=== PATIENT | female | born 1955 | race African-American/Black ===

== ENCOUNTER 2018-07-25 10:03 | Emergency (ER) | payer BC, OTHER ==
[2018-07-25 10:26] VITALS: BP 146/73
--- NOTE | 2018-07-25 10:39 | ER Document Report ---
ED Medical Screen (RME) - General Chief Complaint: Breathing Difficulty Stated Complaint: DIFFICULTY BREATHING Time Seen by Provider: 07/25/18 10:34 Primary Care Provider: KAYCE DANIEL [Primary Care Provider] - Follow up as needed Notes: Patient is a 63-year-old female presents to the emergency department for generalized respiratory distress. States she has had intermittent shortness of breath which got worse this morning which is why she presents to the emergency room. Patient states on July 11 she had a total knee replacement of the left knee. Patient's denying any complications without surgery. Patient's denying any history of asthma, COPD, congestive heart failure. She is denying any chest pain. States she just feels as though it is hard to catch her breath. Patient's denying any URI symptoms or fever. GENERAL: Alert, interacts well. No acute distress. LUNGS: Clear to auscultation bilaterally, no wheezes, rales, or rhonchi. No respiratory distress. I have greeted and performed a rapid initial assessment of this patient. A comprehensive ED assessment and evaluation of the patient, analysis of test results and completion of the medical decision making process will be conducted by additional ED providers. This medical record was dictated with voice recognizing software. There may be grammatical, syntax errors that are unintended. TRAVEL OUTSIDE OF THE [place] IN LAST 30 DAYS: No - Related Data Allergies/Adverse Reactions: diphenhydramine [From Benadryl] Allergy (Verified 07/25/18 10:04) Physical Exam - Vital signs Vitals: Temp Pulse Resp BP Pulse Ox 98.2 F 85 18 146/73 H 97 07/25/18 10:07/25/18 10:07/25/18 10:07/25/18 10:07/25/18 10:25 Course - Vital Signs Vital signs: Temp Pulse Resp BP Pulse Ox 98.2 F 85 18 146/73 H 97 07/25/18 10:07/25/18 10:07/25/18 10:07/25/18 10:07/25/18 10:25 Doctor's Discharge - Discharge Referrals: KAYCE DANIEL [Primary Care Provider] - Follow up as needed
--- NOTE | 2018-07-25 11:00 | RADIOLOGY REPORT (SQ) ---
EXAM DESCRIPTION: CHEST 2 VIEWS COMPLETED DATE/TIME: 07/25/2018 10:49 am REASON FOR STUDY: SOB COMPARISON: None. EXAM PARAMETERS: NUMBER OF VIEWS: two views TECHNIQUE: Digital Frontal and Lateral radiographic views of the chest acquired. RADIATION DOSE: NA LIMITATIONS: none FINDINGS: LUNGS AND PLEURA: No opacities, masses or pneumothorax. No pleural effusion. MEDIASTINUM AND HILAR STRUCTURES: No masses or contour abnormalities. HEART AND VASCULAR STRUCTURES: Heart normal size. No evidence for failure. BONES: No acute findings. HARDWARE: None in the chest. OTHER: No other significant finding. IMPRESSION: NO ACUTE RADIOGRAPHIC FINDING IN THE CHEST. TECHNICAL DOCUMENTATION: JOB ID: [id number] [employer]- All Rights Reserved Reading location - IP/workstation name: [email or web address]
[2018-07-25 11:17] LABS: ABSOLUTE BASOPHILS # (AUTO) 0.1 10^3/uL (0.0-0.2); ABSOLUTE LYMPHOCYTES (AUTO) 1.2 10^3/uL (0.5-4.7); ABSOLUTE MONOCYTES (AUTO) 0.7 10^3/uL (0.1-1.4); ABSOLUTE NEUT (AUTO) 7.1 10^3/uL (1.7-8.2); BASOPHILS % (AUTO) 0.9 % (0-2); EOSINOPHILS % (AUTO) 0.1 % (0-6); HEMATOCRIT 35.3 % (36.0-47.0); HEMOGLOBIN 11.8 g/dL (12.0-15.5); LYMPHOCYTES % (AUTO) 13.1 % (13-45); MEAN CORPUSCULAR HGB CONC 33.3 g/dL (32.0-36.0); MEAN CORPUSCULAR VOLUME 84 fl (80-97); MONOCYTES % (AUTO) 7.4 % (3-13); PLATELET COUNT 375 10^3/uL (150-450); RED BLOOD COUNT 4.21 10^6/uL (3.72-5.28); RED CELL DISTRIBUTION WIDTH 14.4 % (11.5-14.0); SEGMENTED NEUTROPHILS % (AUTO) 78.5 % (42-78); TOTAL CELLS COUNTED % (AUTO) 100 %; WHITE BLOOD COUNT 9.1 10^3/uL (4.0-10.5)
[2018-07-25 11:36] LABS: ALANINE AMINOTRANSFERASE 44 U/L (9-52); ALBUMIN 4.4 g/dL (3.5-5.0); ALKALINE PHOSPHATASE 110 U/L (38-126); ANION GAP 11 (5-19); ASPARTATE AMINO TRANSFERASE 26 U/L (14-36); BILIRUBIN,DIRECT 0.4 mg/dL (0.0-0.4); BILIRUBIN,TOTAL 0.7 mg/dL (0.2-1.3); BLOOD UREA NITROGEN 11 mg/dL (7-20); CARBON DIOXIDE 32 mmol/L (22-30); CHLORIDE 97 mmol/L (98-107); GLUCOSE 102 mg/dL (75-110); POTASSIUM 3.9 mmol/L (3.6-5.0); SODIUM 139.6 mmol/L (137-145); TOTAL PROTEIN 7.4 g/dL (6.3-8.2)
[2018-07-25 11:47] LABS: NT PRO BNP 22 pg/mL (5-900)
[2018-07-25 11:48] LABS: TROPONIN I < 0.012 ng/mL
--- NOTE | 2018-07-25 13:47 | RADIOLOGY REPORT (SQ) ---
EXAM DESCRIPTION: CTA CHEST COMPLETED DATE/TIME: 07/25/2018 1:37 pm REASON FOR STUDY: PE study COMPARISON: None. TECHNIQUE: CT scan of the chest performed using helical scanning technique with dynamic intravenous contrast injection. Images reviewed with lung, soft tissue and bone windows. Reconstructed coronal and sagittal MPR images reviewed. Additional 3 dimensional post-processing performed to develop Maximal Intensity Projection images (AL P). All images stored on PACS. All CT scanners at this facility use dose modulation, iterative reconstruction, and/or weight based d osing when appropriate to reduce radiation dose to as low as reasonably achievable (ALARA). [facility]: Dose Right [facility]: CareDose [facility]: Dose Right [facility]: Teradose 4D [facility]: [email or web address] CONTRAST TYPE AND DOSE: contrast/concentration: Isovue 350.00 mg/ml; Total Contrast Delivered: 79.0 ml; Total Saline Delivered: 90.0 ml Contrast bolus optimized for the pulmonary arteries. Not diagnostic for the aorta. RENAL FUNCTION: GFR > 60. RADIATION DOSE: CT Rad equipment meets quality standard of care and radiation dose reduction techniq ues were employed. CTDIvol: 32.1 - 39.7 mGy. DLP: 964 mGy-cm. . LIMITATIONS: None. FINDINGS: LUNGS AND PLEURA: No masses, infiltrates, or pneumothorax. No pleural effusions or pleura l calcifications. AORTA AND GREAT VESSELS: No aneurysm. Contrast bolus not optimized for the aorta. HEART: No pericardial effusion. No significant coronary artery calcifications. PULMONARY ARTERIES: No emboli visualized in the main pulmonary arteries or the segmental branches. HILAR AND MEDIASTINAL STRUCTURES: No identified masses or abnormal nodes. HARDWARE: None in the chest. UPPER ABDOMEN: No significant findings. Limited exam. THYROID AND OTHER SOFT TISSUES: No masses. No adenopathy. BONES: No acute or significant finding. 3D MIPS: Confirm above findings. OTHER: No other significant finding. IMPRESSION: Negative examination for pulmonary embolism. COMMENT: Quality ID # [id number]: Final reports with documentation of one or more dose reduction techniques (e.g., Automated exposure control, adjustment of the mA and/or kV according to patient size, use of iterative reconstruction technique) TECHNICAL DOCUMENTATION: JOB ID: [id number] [employer]- All Rights Reserved Reading location - IP/workstation name: [email or web address]
--- NOTE | 2018-07-25 14:01 | ER Document Report ---
ED General - General Chief Complaint: Breathing Difficulty Stated Complaint: DIFFICULTY BREATHING Time Seen by Provider: 07/25/18 10:34 Primary Care Provider: KAYCE DANIEL [NO LOCAL MD] - Follow up as needed TRAVEL OUTSIDE OF THE [place] IN LAST 30 DAYS: No - HPI Notes: Patient is a 63-year-old female that presents to the emergency department for chief complaint of shortness of breath. Patient states she feels like she has to think about taking a deep breath in. She relates this as a sensation of shortness of breath that began yesterday evening. She denies any associated chest pain, diaphoresis, cough, palpitations or lightheadedness. She did have a left TKA on 07/11/2018. She denies any issues with her knee replacement and states the Percocet is controlling her pain. Patient denies history of DVT/PE. She states the swelling in her left leg has been improving since surgery. Patient denies tobacco use and history of asthma/COPD. Past Medical History: Hypertension, hyperlipidemia, borderline diabetes Past Surgical History: Left TKA Social History: Denies drugs alcohol and tobacco Family History: Reviewed and noncontributory for presenting illness Allergies: Reviewed, see documented allergy list. REVIEW OF SYSTEMS: CONSTITUTIONAL : No fever No chills No diaphoresis No recent illness EENT: No vision changes No congestion No sore throat CARDIOVASCULAR: No chest pain No palpitations RESPIRATORY: shortness of breath No cough difficulty breathing GASTROINTESTINAL: No abdominal pain No nausea No vomiting No diarrhea GENITOURINARY: No dysuria No hematuria No difficulty urinating MUSCULOSKELETAL: No back pain No leg pain No arm pain SKIN: No rashes No lesions LYMPHATIC: No swollen, enlarged glands. NEUROLOGICAL: No lightheadedness No headache No weakness No paresthesias PSYCHIATRIC: No anxiety No depression PHYSICAL EXAMINATION: Vital signs reviewed, nursing noted reviewed. GENERAL: Well-appearing, well-nourished and in no acute distress. HEAD: Atraumatic, normocephalic. EYES: Eyes appear normal, extraocular movements intact, sclera anicteric, conjunctiva are normal. ENT: nares patent, oropharynx clear without exudates. Moist mucous membranes. NECK: Normal range of motion, supple without lymphadenopathy LUNGS: Breath sounds clear to auscultation bilaterally and equal. No wheezes rales or rhonchi. HEART: Regular rate and rhythm without murmurs ABDOMEN: Soft, nontender, normoactive bowel sounds. No rebound, guarding, or rigidity. No masses appreciated. EXTREMITIES: Minimal tenderness to left knee with postoperative dressings in place that are clean, dry, intact. Slight decreased range of motion of left knee, trace edema that is nonpitting in the left lower extremity. Normal right lower extremity exam. Good range of motion. NEUROLOGICAL: No focal neurological deficits. Moves all extremities spontaneously Motor and sensory grossly intact on exam. PSYCH: Normal mood, normal affect. SKIN: Warm, Dry, normal turgor. Postoperative dressing to left knee - Related Data Allergies/Adverse Reactions: diphenhydramine [From Benadryl] Allergy (Verified 07/25/18 10:04) Past Medical History - Social History Smoking Status: Never Smoker Chew tobacco use (# tins/day): No Frequency of alcohol use: None Drug Abuse: None Family History: Reviewed & Not Pertinent Patient has suicidal ideation: No Patient has homicidal ideation: No - Past Medical History Cardiac Medical History: Reports: Hx Hypertension Renal/ Medical History: Denies: Hx Peritoneal Dialysis Past Surgical History: Reports: Hx Section, Hx Hysterectomy, Hx Orthopedic Surgery Physical Exam - Vital signs Vitals: Temp Pulse Resp BP Pulse Ox 98.2 F 85 18 146/73 H 97 07/25/18 10:25 07/25/18 10:25 07/25/18 10:25 07/25/18 10:25 07/25/18 10:25 Course - Re-evaluation Re-evalutation: 07/25/18 13:58 Vitals reviewed. Nursing notes reviewed. Patient is well-appearing and in no acute respiratory distress. She has normal lung sounds. Patient has no history of asthma or COPD and is not wheezing. I do not feel she would benefit from aerosolized treatments at this time. Patient does have elevated d-dimer however CT of the chest shows no pulmonary embolism. She has no other acute findings on chest CT. Her blood work is unremarkable. She has a negative troponin and has not had any complaint of chest pain. Her EKG shows no acute ischemic changes. I am not currently suspicious for ACS. Her shortness of breath has been intermittent and may be related to seasonal allergies versus anxiety. I see no structural abnormalities at this time. She is otherwise hemodynamically stable and will be discharged home with outpatient follow-up. Laboratory 06/09/0507/25/18 07/25/18 10:58 10:58 10:58 WBC 9.1 RBC 4.21 Hgb 11.8 L Hct 35.3 L MCV 84 MCH 28.0 MCHC 33.3 RDW 14.4 H Plt Count 375 Seg Neutrophils % 78.5 H Lymphocytes % 13.1 Monocytes % 7.4 Eosinophils % 0.1 Basophils % 0.9 Absolute Neutrophils 7.1 Absolute Lymphocytes 1.2 Absolute Monocytes 0.7 Absolute Eosinophils 0.0 Absolute Basophils 0.1 D-Dimer 6.31 H Sodium 139.6 Potassium 3.9 Chloride 97 L Carbon Dioxide 32 H Anion Gap 11 BUN 11 Creatinine 0.68 Est GFR ( Amer) > 60 Est GFR (Non-Af Amer) > 60 Glucose 102 Calcium 10.0 Total Bilirubin 0.7 Direct Bilirubin 0.4 Neonat Total Bilirubin Not Reportable Neonat Direct Bilirubin Not Reportable Neonat Indirect Bili Not Reportable AST 26 ALT 44 Alkaline Phosphatase 110 Troponin I NT-Pro-B Natriuret Pep Total Protein 7.4 Albumin 4.4 07/25/18 10:58 WBC RBC Hgb Hct MCV MCH MCHC RDW Plt Count Seg Neutrophils % Lymphocytes % Monocytes % Eosinophils % Basophils % Absolute Neutrophils Absolute Lymphocytes Absolute Monocytes Absolute Eosinophils Absolute Basophils D-Dimer Sodium Potassium Chloride Carbon Dioxide Anion Gap BUN Creatinine Est GFR ( Amer) Est GFR (Non-Af Amer) Glucose Calcium Total Bilirubin Direct Bilirubin Neonat Total Bilirubin Neonat Direct Bilirubin Neonat Indirect Bili AST ALT Alkaline Phosphatase Troponin I < 0.012 NT-Pro-B Natriuret Pep 22 Total Protein Albumin Chest X-Ray 07/25/18 10:35 IMPRESSION: NO ACUTE RADIOGRAPHIC FINDING IN THE CHEST. Chest/Abdomen CTA 07/25/18 12:51 IMPRESSION: Negative examination for pulmonary embolism. - Vital Signs Vital signs: Temp Pulse Resp BP Pulse Ox 98.2 F 85 17 146/73 H 100 07/25/18 10:25 07/25/18 10:25 07/25/18 13:00 07/25/18 10:25 07/25/18 12:28 - Laboratory Result Diagrams: 07/25/18 10:58 07/25/18 10:58 Laboratory results interpreted by me: 07/25/18 07/25/18 07/25/18 10:58 10:58 10:58 Hgb 11.8 L Hct 35.3 L RDW 14.4 H Seg Neutrophils % 78.5 H D-Dimer 6.31 H Chloride 97 L Carbon Dioxide 32 H - EKG Interpretation by Me Additional EKG results interpreted by me: 07/25/18 14:01 Interpreted by myself [id number]: Normal sinus rhythm, rate 85, normal axis, no ectopy, no STEMI Discharge - Discharge Clinical Impression: Shortness of breath Condition: Stable Disposition: HOME, SELF-CARE Instructions: Dyspnea, Nonspecific ([facility]) Additional Instructions: Please return to the emergency department if you have any worsening, or concern of your symptoms. Please return to the emergency department if you develop chest pain, difficulty breathing, severe abdominal pain, or ongoing vomiting. Please follow-up with your primary care physician in 2-3 days and any other recommended physicians. If prescribed, take all medications as directed. If you have any questions or concerns do not hesitate to return the emergency department for evaluation. [] Referrals: FREDY,NO [NO LOCAL MD] - Follow up as needed STEVAN SOSA PA-C [NO LOCAL MD] - Follow up as needed
--- NOTE | 2018-07-25 22:17 | EKG REPORT ---
SEVERITY:- NORMAL ECG - SINUS RHYTHM : Confirmed by: Dorian Alcaraz MD 25-Jul-2018 22:15:32
== END 2018-07-25 14:19 | disposition home or self-care (01) ==
LOC: ER 10:03
DX: R06.02 Shortness of breath (principal); R79.1 Abnormal coagulation profile; I10 Essential (primary) hypertension; R60.0 Localized edema; Z96.652 Presence of left artificial knee joint; Z88.8 Allergy status to other drugs, medicaments and biological substances
CPT/HCPCS: 36415; 71046; 71275; 80053; 83880; 84484; 85025; 85379; 93005; 93010; 99285